=== PATIENT | male | born 1985 ===

== ENCOUNTER 2017-03-25 19:40 | Emergency (ER) | payer OTHER ==
[~2017-03-25] VITALS: Ht 172.7 cm; Wt 68.0 kg
--- NOTE | 2017-03-25 20:22 | NUR ---
DR. MICHAEL AT BEDSIDE FOR MSE.
--- NOTE | 2017-03-25 20:52 | NUR ---
Patient discharged to home in stable conditon. Written and verbal after care instructions given. Patient verbalizes understanding of instructions. PATIENT LEFT WITH STABLE GAIT.
[2017-03-25 20:55] VITALS: BP 115/76
== END 2017-03-25 20:56 | disposition home or self-care (01) ==
LOC: ER 19:43
DX: G89.29 Other chronic pain (principal); R10.9 Unspecified abdominal pain; R05 Cough; F17.200 Nicotine dependence, unspecified, uncomplicated
CPT/HCPCS: 99283; 99406; A4663